=== PATIENT | female | born 1950 | race Asian ===

== ENCOUNTER 2016-10-25 17:08 | Emergency (ER) | payer SELFPAY ==
[~2016-10-25] VITALS: Ht 157.5 cm; Wt 59.0 kg
[2016-10-25 17:10] VITALS: BP 144/75
--- NOTE | 2016-10-25 18:07 | Emergency Room Report ---
History of Present Illness General Chief Complaint: Behavioral Complaint Source: Patient (ILIA THORPE) Present Illness HPI This is a 66-year-old female who has history of depression and anxiety who attempted to kill herself today. Patient states that she is sad and depressed has little later and interest in doing things has trouble falling asleep has poor appetite feels bad about herself and that she is a failure and has thought that she be better off or hurt herself in some way. Patient states she has thoughts of killing her self by over-dosing on her medications. States she took 4 x 0.5mg Ativan and 10mg of her antidepressant. Admits that she gets into a lot of arguments and is currently moving which has precipitated her depression. Denies any HI, AH or VH. ([email or web address].[email or web address]) Allergies: Coded Allergies: No Known Allergies (Unverified , 10/25/16) Patient History Now: No (ILIA THORPE) [facility] Documentation-[facility] Hx Hypertension: Yes (ILIA [email or web address].Kathy) Physical Exam Vital Signs Date Time Temp Pulse Resp B/P Pulse Ox O2 Delivery O2 Flow Rate FiO2 10/25/16 16:57 98.2 76 17 144/75 98 Room Air Sp02 EP Interpretation: reviewed, normal General Appearance: no apparent distress, alert, GCS 15, non-toxic Head: normocephalic, atraumatic Eyes: bilateral eye PERRL, bilateral eye normal inspection ENT: hearing grossly normal, normal pharynx, no angioedema, normal voice Respiratory: chest non-tender, lungs clear, normal breath sounds, speaking full sentences Cardiovascular #1: regular rate, rhythm, no edema Musculoskeletal: back normal, gait/station normal, normal range of motion, non- tender, calf tenderness Neurologic: alert, oriented x3, responsive, motor strength/tone normal, sensory intact, speech normal Psychiatric: judgement/insight normal, memory normal, no delusions, depressed affect, other - No AH, VH or HI Skin: normal color, no rash, warm/dry, well hydrated ([email or web address]) Medical Decision Making PA Attestation Dr. Velasquez is my supervising physician with whom patient management has been discussed with. (ILIA THORPE) Diagnostic Impression: Primary Impression: Major depression, chronic ER Course Pt. presents to the ED c/o suicide evaluation Ddx considered but are not limited to major depression, suicidal, psychosis, anxiety Vital signs: are WNL, pt. 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 Sauer DISCHARGE: At this time pt. is stable for d/c to home per Psych evaluation. Will provide printed patient care instructions, and any necessary prescriptions. Care plan and follow up instructions have been discussed with the patient prior to discharge. (ILIA THORPE) ER Course I evaluated this patient in the ED at [facility] with my advanced practice provider (Physician Police Crime Scene Technician) colleague, who practices under my general supervision. My impressions concur with the advanced practice provider in regards to their obtained history of present illness, physical exam, general management, diagnosis, and disposition. In particular, I agree with PA-obtained interpretation of imaging, rhythm strip. For the evening and overnight shifts, we do not have the benefit of an in-house Radiologist to review xrays so our interpretation may be limited. Patients are to be discharged only with normal vital signs (or if we discussed a particular exception), a plan for follow-up care, and understand to return to the ED for worsening symptoms. Please see midlevel healthcare providers note for further details. (AJ VELASQUEZ M.D.) Last Vital Signs Date Time Temp Pulse Resp B/P Pulse Ox O2 Delivery O2 Flow Rate FiO2 10/25/16 16:57 98.2 76 17 144/75 98 Room Air (ILIA THORPE) Disposition: HOME, SELF-CARE Condition: Stable ILIA THORPE Oct 25, 2016 18:07 AJ VELASQUEZ M.D. Oct 29, 2016 14:02
[2016-10-25 18:56] VITALS: BP 129/82
[2016-10-25 18:57] VITALS: BP 144/75
--- NOTE | 2016-10-27 06:38 | Consultation ---
DATE OF CONSULTATION: 10/25/2016 HISTORY OF PRESENT ILLNESS: This is a 66-year-old female with a history of depression who has been admitted to the hospital for suicide attempt. She only took few pills of Ativan, about four of 0.5 mg Ativan, and 10 mg of her antidepressant. The patient stated that she is currently not suicidal. She stated that she overdosed on her medications for currently in the process of moving to [place] and she does not want to move there. Also, she is having multiple conflicts with her family members. She endorses depressed mood, anhedonia, and worthlessness. She stated that she has had several overdoses in the past attempted to kill herself and she is overwhelmed with her life and has poor coping skills. She is currently not endorsing any suicidal ideation, would like to be discharged. PAST PSYCHIATRIC HISTORY: She has a history of depression. She has been admitted to [facility] and treated with depression and anxiety. PAST MEDICAL HISTORY: None. ALLERGIES: No known drug allergies. SUBSTANCE ABUSE HISTORY: No history of illicit drug use or alcohol. MENTAL STATUS EXAMINATION: The patient is alert and oriented x4. Pleasant and responsive. Speech is within normal limits. Her mood is depressed. Affect is constricted. Congruent mood. Thought process is concrete. Thought content, no suicidal or homicidal ideation. No delusions. No auditory or visual hallucinations. Cognition is intact. Insight and judgment fair. ASSESSMENT: AXIS I: Major depressive disorder, recurrent, moderate. AXIS II: Deferred. AXIS III: As above. AXIS IV: Low. AXIS V: 50. PLAN: The patient will be discharged with the followup plan with a psychiatrist. At the time of the discharge, the patient was not an imminent danger to self or others. The patient will be discharged. The patient does not meet the criteria for 5150 hold nor inpatient level of care. Jann Sauer M.D. DR: GISELL JOB#: [id number] CC:
== END 2016-10-25 20:20 | disposition home or self-care (01) ==
LOC: EDBD 17:08 → EMR 19:04
DX: F33.9 Major depressive disorder, recurrent, unspecified (principal); I10 Essential (primary) hypertension
CPT/HCPCS: 99284